=== PATIENT | female | born 1950 | race African-American/Black ===

== ENCOUNTER 2022-05-17 20:33 | Emergency (ER) | payer MEDICARE, MEDICAID, SELFPAY ==
--- NOTE | ~2022-05-17 | XR_ITS ---
EXAMINATION: XR chest 1V portable DATE: 05/17/2022 22:09 INDICATION: Cough. TECHNIQUE: A single frontal view of the chest was obtained. COMPARISON: None. FINDINGS: There are calcified pleural plaques on the right. There are small pleural effusions. There are airspace opacities in all lung zones bilaterally with a perihilar predominance. No pneumothorax. Cardiomegaly is noted. Surgical clips overlie the upper chest. IMPRESSION: 1. Diffuse lung disease with a perihilar predominance, consistent with pulmonary edema versus pneumon ia. 2. Small pleural effusions. 3. Cardiomegaly. Reviewed, dictated and finalized at location A. TIME PILOT IMPRESSION: 1. Diffuse lung disease with a perihilar predominance, consistent with pulmonar y edema versus pneumonia. 2. Small pleural effusions. 3. Cardiomegaly.
[2022-05-17 21:02] VITALS: BP 91/67
[2022-05-17 21:09] VITALS: BP 106/88; PULSE 92; RESP 16; TEMP 37.2; O2SAT 100
[2022-05-17 21:17] VITALS: BP 104/68
[2022-05-17 21:31] VITALS: BP 101/76
[2022-05-17 22:15] VITALS: O2SAT 100
[2022-05-17 22:31] VITALS: BP 116/70
--- NOTE | 2022-05-17 22:38 | PC.NURSE ---
Patient refuses COVID swab.
[2022-05-17 22:42] LABS: Hematocrit 22.2 % (37.0-47.0); Hemoglobin 7.2 g/dL (12.0-15.0); Immature Platelet Fraction Pct 24.5 % (0.9-11.2); Mean Corpuscular HGB Conc 32.4 g/dl (32-36); Mean Corpuscular Hemoglobin 30.8 pg (26-34); Mean Corpuscular Volume 94.9 fl (80-100); Mean Platelet Volume 13.2 fl (7.4-10.4); Platelet Count Result 27 k/mm3 (150-375); Red Blood Count 2.34 M/mm3 (4.2-5.4); Red Cell Distribution Width 20.2 % (11.5-14.5); White Blood Count 5.2 K/mm3 (4.5-10.0)
[2022-05-17 22:51] LABS: INR 1.8
[2022-05-17 22:54] LABS: Alanine Aminotransferase 10 U/L (6-35); Albumin Level 3.1 g/dL (3.5-5.1); Alkaline Phosphatase 67 U/L (38-126); Anion Gap 3 mmol/L (8-16); Aspartate Amino Transferase 15 U/L (14-36); Bilirubin,Total 0.6 mg/dL (0.2-1.3); Blood Urea Nitrogen 38 mg/dL (7-17); CRP 7.3 mg/dL (<1.0); Calcium 6.9 mg/dL (8.4-10.2); Carbon Dioxide 32 mmol/L (22-30); Chloride 93 mmol/L (98-107); Estimated Glomerular Filt Rate > 60; Glucose 116 mg/dL (65-110); Magnesium 1.2 mg/dL (1.6-2.3); Sodium 128 mmol/L (137-145)
[2022-05-17 23:00] LABS: NT Pro B Type Natriuretic Pept > 30000 pg/mL (19.9-100)
[2022-05-17 23:06] LABS: Anisocytosis 1+ (NORMAL); Band Neutrophils Percent 13 % (0-6); Eosinophils Absolute Manual 0.05 K/mm3 (0.02-0.5); Eosinophils Percent Manual 1 % (0-4); Lymphocytes Absolute Manual 0.52 K/mm3 (1.1-4.5); Metamyelocytes Percent 1 %; Monocytes Percent Manual 4 % (3-9); Neutrophils Absolute Manual 4.36 K/mm3 (1.7-7.2); Neutrophils Percent Manual 71 % (46-73); Ovalocytes 1+ (NORMAL); Platelet Estimate Decreased (Adequate); Stomatocytes 1+ (NORMAL); Total Cells Counted 100
[2022-05-17 23:08] LABS: Schistocytes None Seen (NORMAL)
--- NOTE | 2022-05-17 23:36 | PC.NURSE ---
Patient report given to CHERYL Olivares. All questions answered and care of patient transferred.
[2022-05-17 23:38] LABS: Procalcitonin 0.3 ng/mL
--- NOTE | 2022-05-18 00:31 | PC.NURSE ---
Monica faxed consent for medical records and Monica faxed pt chart from recent visit in response. Dr. Chavez has chart at this time.
[2022-05-18 00:59] LABS: Hematocrit 25.6 % (37.0-47.0); Hemoglobin 8.1 g/dL (12.0-15.0); Immature Platelet Fraction Pct 25.6 % (0.9-11.2); Mean Corpuscular HGB Conc 31.6 g/dl (32-36); Mean Corpuscular Hemoglobin 31.2 pg (26-34); Mean Corpuscular Volume 98.5 fl (80-100); Mean Platelet Volume 14.5 fl (7.4-10.4); Platelet Count Result 29 k/mm3 (150-375); Red Cell Distribution Width 20.7 % (11.5-14.5)
--- NOTE | 2022-05-18 00:59 | PC.NURSE ---
Pt stating that she wants to go home at this time. Dr. Chavez made aware. No new orders at this time.
[2022-05-18 01:07] LABS: Alanine Aminotransferase 10 U/L (6-35); Albumin Level 3.5 g/dL (3.5-5.1); Alkaline Phosphatase 71 U/L (38-126); Anion Gap 7 mmol/L (8-16); Aspartate Amino Transferase 15 U/L (14-36); Bilirubin,Total 0.8 mg/dL (0.2-1.3); Blood Urea Nitrogen 38 mg/dL (7-17); Calcium 7.2 mg/dL (8.4-10.2); Carbon Dioxide 28 mmol/L (22-30); Chloride 94 mmol/L (98-107); Estimated Glomerular Filt Rate > 60; Glucose 113 mg/dL (65-110); Potassium 5.1 mmol/L (3.4-5.0); Sodium 129 mmol/L (137-145)
[2022-05-18 01:13] LABS: Band Neutrophils Percent 10 % (0-6); Lymphocytes Absolute Manual 0.77 K/mm3 (1.1-4.5); Monocytes Absolute Manual 0.42 K/mm3 (0.1-0.90); Monocytes Percent Manual 6 % (3-9); Neutrophils Absolute Manual 5.81 K/mm3 (1.7-7.2); Neutrophils Percent Manual 73 % (46-73); Platelet Estimate Decreased (Adequate); Total Cells Counted 100
[2022-05-18 01:14] LABS: Anisocytosis 1+ (NORMAL); Ovalocytes 1+ (NORMAL); Schistocytes None Seen (NORMAL); Stomatocytes 1+ (NORMAL)
--- NOTE | 2022-05-18 01:15 | ED.GENADULT ---
HPI - General Adult General Chief complaint: Recheck/Abnormal Lab/Rx Stated complaint: abnormal labs Time Seen by Provider: 05/17/22 21:48 History of Present Illness HPI narrative: Patient 72-year-old female presents to the emergency department with chief complaint of abnormal labs. Patient has prior history of myelodysplasia syndrome and has history of thrombocytopenia and anemia. The patient was seen yesterday at [facility] after she had had bleeding from a wound that was stopped by the time she arrived at [facility]. Patient had laboratory studies checked yesterday that showed that she was anemic and thrombocytopenic but this was unchanged from her previous levels. Today the nursing facility noticed that she was still anemic and thrombocytopenic and decided to send the patient to another facility today for reevaluation even though all of her care is at [facility] Review of Systems Review of Systems: A 10 system review of systems was completed on the patient and is negative except for what is stated in the HPI. Nursing and ancillary documentation was reviewed. Exam Narrative: GENERAL: Well-appearing, well-nourished, and in no acute distress. HEAD: Normocephalic, atraumatic. EYES: PERRLA and EOMI. ENT: Nares clear, no rhinorrhea or epistaxis. Mucous membranes moist. NECK: Supple. Tracheostomy in place trach tube in place. Patient communicates via talking with lips CHEST: Clear to auscultation. No respiratory distress. HEART: Regular rate and rhythm. No murmur heard. Normal peripheral pulses. ABDOMEN: Soft, nontender, nondistended, normal active bowel sounds. EXTREMITIES: Normal range of motion. No edema. SKIN: Warm, dry, no rash. NEURO: No focal deficits. Alert and oriented x3. PSYCH: Normal mood and affect. Course Vital Signs Vital signs: Vital Signs Blood Pressure 91/67 L 05/17/22 21:02 Temperature 37.2 C 05/17/22 21:09 Pulse Rate 92 05/17/22 21:09 Respiratory Rate 16 05/17/22 21:09 Blood Pressure 116/70 05/17/22 22:31 Pulse Oximetry 100 05/17/22 22:15 Oxygen Delivery Room Air 05/17/22 21:09 Oxygen Flow Rate 4 05/17/22 22:15 Medical Decision Making [facility] Narrative Medical decision making narrative: Differential diagnosis includes anemia, worsening myelodysplasia, sepsis, Due to the patient never being seen in our facility previously records were obtained from [facility] and reviewed. Patient has history of myelodysplasia and yesterday had a hemoglobin of 7.4 and a platelet count of 19. Repeat CBC in our emergency department showed a hemoglobin of 8.1 and a platelet count of 29. These are not significantly changed from previous studies and apparently this is the patient's baseline. Vital Signs Vital Signs: Vital Signs Blood Pressure 91/67 L 05/17/22 21:02 Temperature 37.2 C 05/17/22 21:09 Pulse Rate 92 05/17/22 21:09 Respiratory Rate 16 05/17/22 21:09 Blood Pressure 116/70 05/17/22 22:31 Pulse Oximetry 100 05/17/22 22:15 Oxygen Delivery Room Air 05/17/22 21:09 Oxygen Flow Rate 4 05/17/22 22:15 Lab Data 05/18/22 00:50 05/18/22 00:50 Labs: Lab Results 05/17/22 05/17/22 05/17/22 Range/Units 22:31 22:31 22:31 WBC 5.2 (4.5-10.0) K/mm3 RBC 2.34 L (4.2-5.4) M/mm3 Hgb 7.2 L (12.0-15.0) g/dL Hct 22.2 L (37.0-47.0) % MCV 94.9 (80-100) fl MCH 30.8 (26-34) pg MCHC 32.4 (32-36) g/dl RDW 20.2 H (11.5-14.5) % Plt Count 27 L (150-375) k/mm3 MPV 13.2 H (7.4-10.4) fl Immature Gran % (Auto) Not Reportable Neut % (Auto) Not Reportable Lymph % (Auto) Not Reportable [place] % (Auto) Not Reportable Eos % (Auto) Not Reportable Baso % (Auto) Not Reportable Lymph # (Auto) Not Reportable [place] # (Auto) Not Reportable Eos # (Auto) Not Reportable Baso # (Auto) Not Reportable Abs Immat Gran (auto) Not Reportable Absolute Neuts (auto) Not Report
[2022-05-18 02:14] VITALS: BP 104/79; PULSE 78; RESP 14; O2SAT 100
== END 2022-05-18 02:14 ==
PROVIDERS: Emergency Provider Emergency Medicine; PCP Internal Medicine
DX: D46.9 Myelodysplastic syndrome, unspecified (principal)
CPT/HCPCS: 36415; 71045; 80053; 83605; 83735; 83880; 84145; 85025; 85055; 85610; 85730; 86140; 86850; 86900; 86901; 99283